=== PATIENT | female | born 1975 | race Two or more races ===

== ENCOUNTER 2016-10-10 00:32 | Emergency (ER) | payer MEDICAID, OTHER ==
[~2016-10-10] VITALS: Ht 167.6 cm; Wt 99.8 kg
[2016-10-10 00:36] VITALS: BP 131/82
[2016-10-10] MEDS ORDERED: ALBUTEROL2.5 MG/3 M INH (00:41)
[2016-10-10] MEDS ORDERED: IBUPROFEN600 MG ORAL (00:58)
--- NOTE | 2016-10-10 00:58 | Emergency Room Report ---
History of Present Illness General Chief Complaint: Multiple Trauma/Fall Source: Patient Present Illness HPI This is a 41-year-old female with no significant testicle history. She presents with chief complaint of head injury and right sided neck pain status post fall. She was told her 3-year-old she slipped on a wet floor and landed on her right side. This occurred in a store. Occur about a couple hours ago. She complaining of some dizziness and hard time hearing out of her right ear. No drainage. Also with neck pain. Pain is 8/10. Also with right toe pain. No loss of consciousness. Allergies: Coded Allergies: No Known Allergies (Unverified , 10/10/16) Patient History Past Medical History: see triage record, old chart reviewed Past Surgical History: none Pertinent Family History: none Social History: Denies: smoking Last Menstrual Period: unk Now: No Immunizations: other Reviewed Nursing Documentation: PMH: Agreed, PSxH: Agreed Nursing Documentation-PMH Hx Asthma: Yes Review of Systems Eye: Denies: blurred vision, eye pain ENT: Denies: ear pain, nose congestion, throat swelling Respiratory: Denies: cough, shortness of breath Cardiovascular: Denies: chest pain, palpitations Gastrointestinal: Denies: abdominal pain, diarrhea, nausea, vomiting Musculoskeletal: Reports: joint pain, Denies: back pain Skin: Denies: rash Neurological: Denies: headache, numbness Endocrine: Denies: increased thirst, increased urine Hematologic/Lymphatic: Denies: easy bruising All Other Systems: negative except mentioned in HPI Physical Exam Vital Signs Date Time Temp Pulse Resp B/P Pulse Ox O2 Delivery O2 Flow Rate FiO2 10/10/16 00:34 98.4 70 16 131/82 97 Room Air vitals normal. Sp02 EP Interpretation: reviewed, normal General Appearance: well appearing, no apparent distress, alert Head: normocephalic, atraumatic, other - TTP over based of right skull/neck Eyes: bilateral eye EOMI, bilateral eye PERRL ENT: hearing grossly normal, normal pharynx Neck: full range of motion, supple, no meningismus Respiratory: chest non-tender, lungs clear, normal breath sounds Cardiovascular #1: regular rate, rhythm, no murmur Gastrointestinal: normal bowel sounds, non tender, no mass, no organomegaly, no bruit, non-distended Musculoskeletal: back normal, gait/station normal, normal range of motion Psychiatric: mood/affect normal Skin: warm/dry Medical Decision Making Diagnostic Impression: Primary Impression: Fall Qualified Codes: W19.XXXA - Unspecified fall, initial encounter Additional Impressions: Multiple injuries due to trauma Head injury, acute Qualified Codes: S09.90XA - Unspecified injury of head, initial encounter Cervical strain, acute Qualified Codes: S16.1XXA - Strain of muscle, fascia and tendon at neck level , initial encounter ER Course Patient with head injury and minor barrel trauma to the right ear. No perforation. No fracture. No bleed. We'll discharge home. CT/MRI/US Diagnostic Results CT/MRI/US Diagnostic Results : Imaging Test Ordered: ct head Impression Neg per radiologist. Last Vital Signs Date Time Temp Pulse Resp B/P Pulse Ox O2 Delivery O2 Flow Rate FiO2 10/10/16 00:34 98.4 70 16 131/82 97 Room Air Status: improved Disposition: HOME, SELF-CARE Condition: Stable Scripts Ibuprofen* (MOTRIN*) 600 Mg Tablet 600 MG ORAL THREE TIMES A DAY, #30 TAB 0 Refills Prov: PEACE SKY M.D. 10/10/16 Referrals: NOT CHOSEN IPA/,REFERRING (PCP) Additional Instructions: Follow up with your doctor in 7 days. Return if worse. PEACE SKY M.D. Oct 10, 2016 00:58
[2016-10-10 01:29] VITALS: BP 131/82
--- NOTE | 2016-10-10 09:37 | Diagnostic Imaging Report ---
Indication: Headache. Head trauma Technique: Contiguous 5 mm thick transaxial imaging of the head obtained in a Siemens Sensation [address] scanner. Soft tissue and bone windows generated. Total Dose length Product (DLP): [address] Dose Index Volume (CTDIvol): 70.38 mGy Comparison: none Findings: The size and configuration of the cortical sulci, basal cisterns, and ventricles are within normal limits for age. There is no mass effect, midline shift, or edema identified. There is no evidence of acute hemorrhage or abnormal intra-axial or extra-axial fluid collections. The bones and soft tissues are unremarkable. Impression: No mass effect, edema or acute bleed. The CT scanner at [facility] is accredited by the [employer] and the scans are performed using dose optimization techniques as appropriate to a performed exam including Automatic Exposure control.
== END 2016-10-10 01:29 | disposition home or self-care (01) ==
LOC: EMR 00:52
DX: S09.90XA Unspecified injury of head, initial encounter (principal); S16.1XXA Strain of muscle, fascia and tendon at neck level, initial encounter; W01.0XXA Fall on same level from slipping, tripping and stumbling without subsequent striking against object, initial encounter; Y93.9 Activity, unspecified; Y92.512 Supermarket, store or market as the place of occurrence of the external cause; M25.571 Pain in right ankle and joints of right foot; R42 Dizziness and giddiness
CPT/HCPCS: 70450; 99284

== ENCOUNTER 2016-10-22 00:40 | Emergency (ER) | payer MEDICAID ==
[~2016-10-22] VITALS: Ht 167.6 cm; Wt 99.8 kg
[~2016-10-22 00:40] MED LIST: ALBUTEROL2.5 MG/3 M INH; IBUPROFEN600 MG ORAL
[2016-10-22] MEDS ORDERED: Tetanus/Diptheria/Pertussis Vaccine 0.5ml Syr IM ONE (01:15)
--- NOTE | 2016-10-22 01:20 | Emergency Room Report ---
History of Present Illness General Chief Complaint: General Complaint Source: Patient Present Illness HPI Patient presents with complaints of left shoulder pain Along with right hand injury the patient was putting air Into her car as tires when the pump pulled back In the connection that was between the pump in the area with the air comes from Had some areas that were exposed with wire This essentially resulted in cutting several areas of her hand Including the proximal aspect of the palm or index finger and a semicircular, superficial laceration across the distal part of the ring finger Several other superficial small lacerations as well Patient also has exacerbation of her left shoulder pain patient had a fall about 2 weeks ago and had some mild discomfort in the shoulder and now feels increasingly worsening discomfort in the posterior aspect of the shoulder especially with movement Allergies: Coded Allergies: No Known Allergies (Unverified , 10/10/16) Patient History Past Medical History: see triage record Pertinent Family History: none Last Menstrual Period: September 23 Now: No Reviewed Nursing Documentation: PMH: Agreed, PSxH: Agreed Nursing Documentation-PMH Past Medical History: No History, Except For Hx Asthma: Yes Review of Systems All Other Systems: negative except mentioned in HPI Physical Exam Vital Signs Date Time Temp Pulse Resp B/P (MAP) Pulse Ox O2 Delivery O2 Flow Rate FiO2 10/22/16 00:56 98.1 81 18 111/77 99 Room Air Sp02 EP Interpretation: reviewed, normal General Appearance: no apparent distress Head: normocephalic, atraumatic Eyes: bilateral eye PERRL, bilateral eye EOMI ENT: hearing grossly normal, normal pharynx Neck: supple, other - Paracervical discomfort right-sided C4-5-6 Respiratory: chest non-tender, lungs clear Cardiovascular #1: normal peripheral pulses, regular rate, rhythm Gastrointestinal: non tender, soft Genitourinary: no CVA tenderness Musculoskeletal: other - Tender on palpation of the proximal dorsal aspect of the humeral head, able to supinate pronate able to flex at the shoulder however this does cause some discomfort Neurologic: alert, oriented x3, responsive Skin: other - Pupils were facial lacerations involving the right hand on the palmar aspect, most notably on the proximal aspect of the index finger, approximately 3 mm, also distal aspect on the palmar side of the ring finger, approximately 1 cm Lymphatic: no adenopathy Procedures Laceration/Wound Repair Laceration/Wound Repair : Consent: Verbal Wound Location: upper extremity Wound's Depth, Shape: superficial Wound Length (cm): 1 Wound Explored: clean Irrigated w/ Saline (ccs): 200 Betadine Prep?: No Wound Repaired With: Steri-strips - 4 Layer Closure?: No Sterile Dressing Applied?: No Splint Applied?: No Patient Tolerated: Well Complications: None Medical Decision Making Diagnostic Impression: Primary Impression: Shoulder contusion Additional Impression: Laceration ER Course Given the patient's presentation and history imaging study of the left shoulder was obtained The wound on the right hand was cleansed and prepped Steri-Strips were applied to the ring finger on the palmar aspect X-ray mentioned does not reveal any obvious acute pathology And the patient stable for close outpatient follow Other X-Ray Diagnostic Results Other X-Ray Diagnostic Results : # of Views/Limited Vs Complete: 3 View - left shoulder Indication: Pain EP Interpretation: Yes Interpretation: no dislocation, no soft tissue swelling, no fractures Impression: No acute disease Interpreting ER Provider: Toni Fisher DO Last Vital Signs Date Time Temp Pulse Resp B/P (MAP) Pulse Ox O2 Delivery O2 Flow Rate FiO2 10/22/16 00:56 98.1 81 18 111/77 99 Room Air Status: improved Disposition: HOME, SELF-CARE Condition: Improved Additional Instructions: Patient is provided with the discharge instructions notified to follow up with primary doctor in the next 2-3 days otherwise return to the er with any worsening symptoms. Please note that this report is being documented using [employer] technology. This can lead to erroneous entry secondary to incorrect interpretation by the dictating instrument. TONI FISHER D.O. Oct 22, 2016 01:20
[2016-10-22 01:57] VITALS: BP 111/77
--- NOTE | 2016-10-22 11:25 | Diagnostic Imaging Report ---
Indication: Pain Findings: 3 views of the left shoulder were obtained. Alignment of the left shoulder is normal. No acute fracture is identified. Soft tissues are unremarkable. Impression: Negative left shoulder examination
== END 2016-10-22 01:57 | disposition home or self-care (01) ==
LOC: EMR 01:05
DX: S40.012A Contusion of left shoulder, initial encounter (principal); S61.411A Laceration without foreign body of right hand, initial encounter; W45.8XXA Other foreign body or object entering through skin, initial encounter; Y92.89 Other specified places as the place of occurrence of the external cause; Z23 Encounter for immunization
CPT/HCPCS: 90471; 90715; 96372; 99283; 99284

== ENCOUNTER 2017-05-01 20:19 | Emergency (ER) | payer MEDICAID, OTHER ==
[~2017-05-01] VITALS: Ht 170.2 cm; Wt 99.8 kg
[2017-05-01 20:25] VITALS: BP 132/85
[2017-05-01] MEDS ORDERED: AMOXICILLIN500 MG ORAL (20:38)
[2017-05-01 20:46] VITALS: BP 132/85
[2017-05-01] MEDS ORDERED: FLUCONAZOLE150 MG ORAL (20:50)
--- NOTE | 2017-05-04 06:58 | Emergency Room Report ---
History of Present Illness General Chief Complaint: Sore Throat Source: Patient Present Illness HPI 42-year-old female presents ED for evaluation. Patient states she's had a sore throat for the last 3 days. Burning, 7 out of 10, nonradiating. Denies cough. Denies fevers or chills. States her son is at bedside who also has similar symptoms. No other aggravating or relieving factors. Denies any other associated symptoms Allergies: Coded Allergies: No Known Allergies (Unverified , 10/10/16) Patient History Past Medical History: asthma Past Surgical History: none Pertinent Family History: none Social History: Denies: smoking, alcohol use, drug use Last Menstrual Period: Mar Now: No Immunizations: UTD Reviewed Nursing Documentation: PMH: Agreed, PSxH: Agreed Nursing Documentation-PMH Hx Asthma: Yes Review of Systems All Other Systems: negative except mentioned in HPI Physical Exam Vital Signs Date Time Temp Pulse Resp B/P (MAP) Pulse Ox O2 Delivery O2 Flow Rate FiO2 05/01/17 20:21 98.3 88 16 132/85 100 Room Air 98.2 Sp02 EP Interpretation: reviewed, normal General Appearance: no apparent distress, alert, GCS 15, non-toxic Head: normocephalic, atraumatic Eyes: bilateral eye normal inspection, bilateral eye PERRL ENT: hearing grossly normal, no angioedema, normal voice, TMs + canals normal, pharyngeal erythema Neck: full range of motion, supple/symm/no masses Respiratory: chest non-tender, lungs clear, normal breath sounds, speaking full sentences Cardiovascular #1: regular rate, rhythm, no edema Cardiovascular #2: 2+ carotid (R), 2+ carotid (L), 2+ radial (R), 2+ radial (L) , 2+ dorsalis pedis (R), 2+ dorsalis pedis (L) Gastrointestinal: normal bowel sounds, non tender, soft, non-distended, no guarding, no rebound Rectal: deferred Genitourinary: normal inspection, no CVA tenderness Musculoskeletal: back normal, gait/station normal, normal range of motion, non- tender Neurologic: alert, oriented x3, responsive, motor strength/tone normal, sensory intact, speech normal Psychiatric: judgement/insight normal, memory normal, mood/affect normal, no suicidal/homicidal ideation Reflexes: 3+ bicep (R), 3+ bicep (L), 3+ tricep (R), 3+ tricep (L), 3+ knee (R) , 3+ knee (L) Skin: normal color, no rash, warm/dry, well hydrated Lymphatic: no adenopathy Medical Decision Making Diagnostic Impression: Primary Impression: Pharyngitis Qualified Codes: J02.9 - Acute pharyngitis, unspecified ER Course Hospital Course 42year-old female presents to ED complaining of sore throat Differential diagnoses include: URI, pharyngitis, otitis media Clinical course Patient placed on stretcher. After initial history, physical exam reveals a young male in no acute distress. Bilateral TM unremarkable. There is pharyngeal erythema w/o tonsillar exudates. No lymphadenopathy. Clinical findings consistent with pharyngitis. Reassurance given Diagnosis - pharyngitis Stable and discharged home with prescriptions for Motrin, amoxicillin. Instructed to followup with PMD. return to ED if symptoms recur or worsen Last Vital Signs Date Time Temp Pulse Resp B/P (MAP) Pulse Ox O2 Delivery O2 Flow Rate FiO2 05/01/17 20:46 98.2 88 16 132/85 100 Room Air 98.2 Status: improved Disposition: HOME, SELF-CARE Condition: Stable Scripts Fluconazole (FLUCONAZOLE) 150 Mg Tablet 150 MG ORAL ONCE, #1 TAB Prov: ZOEY GARCIA M.D. 05/01/17 Amoxicillin* (AMOXIL*) 500 Mg Capsule 500 MG ORAL THREE TIMES A DAY, #21 CAP Prov: ZOEY GARCIA M.D. 05/01/17 Referrals: NON PHYSICIAN (PCP) Patient Instructions: Pharyngitis, [id number] ZOEY GARCIA M.D. May 04, 2017 06:58
== END 2017-05-01 21:30 | disposition home or self-care (01) ==
LOC: EMR 21:26
DX: J02.9 Acute pharyngitis, unspecified (principal); J45.909 Unspecified asthma, uncomplicated
CPT/HCPCS: 99284